=== PATIENT | female | born 1965 | race African-American/Black ===

== ENCOUNTER 2024-01-06 09:31 | Emergency (ER) | payer MEDICARE, SELFPAY ==
[2024-01-06 09:35] VITALS: BP 153/67; PULSE 92; RESP 16; TEMP 36.2; O2SAT 97
--- NOTE | 2024-01-06 11:24 | ED.EAR ---
HPI - Ear Problem General Chief complaint: Ear Stated complaint: ear pain Time Seen by Provider: 01/06/24 10:40 History of Present Illness HPI Narrative: Patient is a 58-year-old female who presents ER with ear pain. Right-sided. Associated muffled hearing. No dental pain. Denies fevers or chills or sweats. Ongoing over last 2 days. Related Data Allergies Allergy/AdvReac Type Severity Reaction Status Date / Time No Known Allergies Allergy Verified 01/06/24 09:35 Review of Systems Constitutional: Constitutional: Denies chills and Denies fever(s) ENT: Denies nasal congestion and Denies sore throat Comments: Right ear pain Respiratory: Respiratory: Denies cough, Denies dyspnea and Denies wheezing PMFSH Past Medical History Medical History (Updated 01/06/24 @ 19:31 by Jacky Bacon MD) Hyperlipidemia Hypertension Exam Narrative: GENERAL: Well-appearing, well-nourished, and in no acute distress. HEAD: Normocephalic, atraumatic. ENT: Mucous membranes moist. otitis media right ear with bulging eardrum with yellow material behind it. Ear canal erythematous. NECK: Supple. EXTREMITIES: Normal range of motion. No edema. SKIN: Warm, dry, no rash. NEURO: Alert and oriented x3. PSYCH: Normal mood and affect. Course Course Emergency Course: Discussed diagnosis and treatment plan. Discharge. Vital Signs Vital signs: Vital Signs Temperature 97.1 F L 01/06/24 09:35 Pulse Rate 92 01/06/24 09:35 Respiratory Rate 16 01/06/24 09:35 Blood Pressure 153/67 H 01/06/24 09:35 Pulse Oximetry 97 01/06/24 09:35 Temperature 98.0 F 01/06/24 11:45 Pulse Rate 80 01/06/24 11:45 Respiratory Rate 16 01/06/24 11:45 Blood Pressure 138/90 01/06/24 11:45 Pulse Oximetry 98 01/06/24 11:45 Medical Decision Making Vital Signs Vital Signs: Vital Signs Temperature 97.1 F L 01/06/24 09:35 Pulse Rate 92 01/06/24 09:35 Respiratory Rate 16 01/06/24 09:35 Blood Pressure 153/67 H 01/06/24 09:35 Pulse Oximetry 97 01/06/24 09:35 Temperature 98.0 F 01/06/24 11:45 Pulse Rate 80 01/06/24 11:45 Respiratory Rate 16 01/06/24 11:45 Blood Pressure 138/90 01/06/24 11:45 Pulse Oximetry 98 01/06/24 11:45 Discharge Plan Discharge Clinical Impression: Otitis media Patient Disposition: Home, Self-Care Condition: Stable Instructions: Ear Infection (ED) Additional Instructions: You have an infection of your right ear, you are being started on Augmentin to help treat this infection. Return to the ER if you have increased pain, you fall and injure yourself, or you have additional concerns. Prescriptions: New amoxicillin-pot clavulanate 875-125 mg tablet 1 tablet PO Q12H Qty: 20 0RF Follow-up/Referrals: Connor,Carole Adler MD [Primary Care Provider] - 1 Week
[2024-01-06 11:45] VITALS: BP 138/90; PULSE 80; RESP 16; TEMP 36.7; O2SAT 98
== END 2024-01-06 11:47 | disposition home or self-care (01) ==
PROVIDERS: Emergency Provider Emergency Medicine; PCP Internal Medicine
DX: H66.91 Otitis media, unspecified, right ear (principal); E78.5 Hyperlipidemia, unspecified; I10 Essential (primary) hypertension
CPT/HCPCS: 99283

== ENCOUNTER 2024-08-14 19:40 | Emergency (ER) | payer MEDICARE, SELFPAY ==
--- NOTE | ~2024-08-14 | XR_ITS ---
XR chest 1V portable Ordering provider: Sima De Leon MD History: 58 years Female with . cp . Comparison: None. FINDINGS: MEDIASTINUM: The cardiac silhouette is slightly enlarged. LUNGS: No infiltrates, effusions or pneumothorax. OTHER: No free air under the diaphragm. Degenerative changes of the spine. IMPRESSION: No acute cardiopulmonary pathology. Reviewed, dictated and finalized at location A.
[2024-08-14 19:49] VITALS: BP 180/87; PULSE 78; RESP 14; TEMP 36.8; O2SAT 98
--- NOTE | 2024-08-14 19:52 | ECG_ITS ---
Test Date: 2024-08-14 19:49:03 Measurements Intervals [place] Rate: 76 P: 44 DC: 149 QRS: -12 QRSD: 95 T: 29 QT: 311 QTc: 351 Interpretive Statements SINUS RHYTHM WITH ATRIAL PREMATURE COMPLEX NONSPECIFIC T-WAVE ABNORMALITY- INFERIOR LEADS BASELINE ARTIFACT- I, III, AVR, AVL, AVF, V1-V6 BORDERLINE ECG No previous ECG available for comparison Electronically Signed On 08-15-2024 07:58:32 CDT by Aaron Alegria D.O.
--- NOTE | 2024-08-14 19:53 | ED.CHESTPAIN ---
HPI - Chest Pain General Chief Complaint: Chest Pain Stated Complaint: chest pain/headache Time Seen by Provider: 08/14/24 19:49 History of Present Illness HPI narrative: Patient is a 4-year-old female who presents to the emergency department this evening complaining of substernal chest pain which started approximately 10:00 a.m. this morning. Patient states that she felt as though the pain got worse throughout the day so she decided to come to the emergency department for further evaluation. States the pain is burning in sensation and does not radiate. Denies any history of cardiovascular disease, admits to history of hypertension and hyperlipidemia and current tobacco use. Denies any nausea vomiting or abdominal pain denies any recent illness and or fevers or chills. No additional symptoms or concerns at this time. Related Data Allergies Allergy/AdvReac Type Severity Reaction Status Date / Time No Known Allergies Allergy Verified 08/14/24 19:56 Review of Systems Review of Systems: All systems are reviewed and are negative unless stated otherwise in the HPI. [facility] Past Medical History Medical History (Updated 08/14/24 @ 21:56 by Sima De Leon MD) Hyperlipidemia Hypertension Exam Narrative: General: Alert, awake, afebrile, in no acute distress. HEENT: PERRL, no rhinorrhea, no post nasal drip, oropharynx clear. Cardiovascular: Regular rate and rhythm, no murmurs, rubs or gallops, no peripheral edema. Respiratory: Clear to auscultation bilaterally, no tachypnea, no wheezing, no rhonchi, no rubs, no respiratory distress. Abdomen: Soft, nontender, nondistended, no rebound, no guarding, no peritoneal signs. Musculoskeletal: No joint swelling or deformity, normal muscle tone. Skin: No rashes or petechia, no signs of infection. Neurological: Alert and oriented to person, place, and time. Follows all commands. No focal deficits, speech is clear and fluent. Course Vital Signs Vital signs: Vital Signs Temperature 98.2 F 08/14/24 19:49 Pulse Rate 78 08/14/24 19:49 Respiratory Rate 14 08/14/24 19:49 Blood Pressure 180/87 H 08/14/24 19:49 Pulse Oximetry 98 08/14/24 19:49 Oxygen Delivery Room Air 08/14/24 19:49 Temperature 97.9 F 08/14/24 20:51 Pulse Rate 71 08/14/24 20:51 Respiratory Rate 19 08/14/24 20:51 Blood Pressure 138/80 08/14/24 20:51 Pulse Oximetry 98 08/14/24 20:51 Oxygen Delivery Room Air 08/14/24 20:32 MDM - Chest Pain MDM Narrative Medical decision making narrative: The patient was evaluated by myself in the emergency department. History is obtained from patient who is an independent historian and physical exam was performed. External medical records were reviewed at this time. IV was established and pertinent tests were ordered. Patient was administered 4 mg of oral Protonix at this time. EKG was obtained which revealed sinus rhythm rate of 76 beats per minute, no evidence of acute ischemia. EKG was independently interpreted by me and is currently pending official cardiology read. Laboratory results obtained revealing a potassium of 3.1, otherwise unremarkable. At this time patient was administered 40 mEq of oral potassium. Magnesium level noted to be normal. Troponin normal. Imaging studies obtained included CXR which was independently interpreted by me revealing no acute cardiopulmonary process, which is pending final radiology interpretation. Differential diagnosis considerations include her acid reflux/GERD, coronary artery disease, infectious process such as pneumonia. Comorbidities impacting this visit include history of hypertension and hyperlipidemia current tobacco use. Patient has a low heart score of 3. I have evaluated and discussed social determinants of health with the patient that could potentially impact subsequent diagnosis and treatment plans. On repeat assessment of the patient, reevaluation revealed that the patient
[2024-08-14 20:00] LABS: Basophils Absolute Auto 0.1 K/mm3 (0.0-0.1); Basophils Percent Auto 0.6 % (0.2-1.2); Eosinophils Absolute Auto 0.2 K/mm3 (0-0.3); Eosinophils Percent Auto 2.1 % (0-4.4); Hematocrit 38.1 % (37.0-47.0); Hemoglobin 12.6 g/dL (12.0-15.0); Immature Granulocyte Absolute 0.03 K/mm3 (0.00-0.031); Immature Granulocyte Percent A 0.3 % (0-0.5); Lymphocytes Absolute Auto 3.79 K/mm3 (0.9-3.2); Lymphocytes Percent Auto 35.2 % (18.3-44.2); Mean Corpuscular HGB Conc 33.1 g/dl (32-36); Mean Corpuscular Hemoglobin 28.1 pg (26-34); Mean Platelet Volume 8.3 fl (7.4-10.4); Monocytes Absolute Auto 0.9 K/mm3 (0.1-0.6); Monocytes Percent Auto 8.2 % (2.6-8.5); Neutrophils Absolute Auto 5.8 K/mm3 (1.3-6.7); Neutrophils Percent Auto 53.6 % (45.5-73.1); Platelet Count Result 284 k/mm3 (150-375); Red Blood Count 4.48 M/mm3 (4.2-5.4); Red Cell Distribution Width 14.2 % (11.5-14.5); White Blood Count 10.8 K/mm3 (4.5-10.0)
[2024-08-14 20:10] LABS: Prothrombin Time 13.4 Seconds (11.1-14.7)
[2024-08-14 20:11] LABS: Partial Thromboplastin Time 32.2 Seconds (22.3-36.8)
[2024-08-14 20:15] LABS: Alanine Aminotransferase 14 U/L (6-35); Albumin Level 4.7 g/dL (3.5-5.1); Alkaline Phosphatase 88 U/L (38-126); Anion Gap 13 mmol/L (4-12); Aspartate Amino Transferase 20 U/L (14-36); Bilirubin,Total 0.3 mg/dL (0.2-1.3); Blood Urea Nitrogen 12 mg/dL (7-17); Calcium 9.8 mg/dL (8.4-10.2); Carbon Dioxide 22 mmol/L (22-30); Chloride 101 mmol/L (98-107); Estimated CRCL calculation 64 ml/min; Estimated Glomerular Filt Rate > 60; Glucose 144 mg/dL (65-110); Lipase 41 U/L (23-300); Potassium 3.1 mmol/L (3.4-5.0); Sodium 136 mmol/L (137-145)
[2024-08-14 20:27] LABS: Troponin I < 0.012 ng/mL (0.000-0.034)
[2024-08-14 20:32] VITALS: PULSE 68
[2024-08-14 20:51] VITALS: BP 138/80; PULSE 71; RESP 19; TEMP 36.6; O2SAT 98
[2024-08-14] MEDS: PANTOPRAZOLE SODIUM IV 40 MG VIAL IV PUSH (21:02)
[2024-08-14] MEDS: POTASSIUM CHLORIDE 20 MEQ PACKET (FOR LIQUID) 40 MEQ PO (21:27)
[2024-08-14 22:00] VITALS: BP 125/87; PULSE 99; RESP 14; TEMP 37; O2SAT 97
== END 2024-08-14 22:00 | disposition home or self-care (01) ==
PROVIDERS: Emergency Provider Emergency Medicine
DX: R07.89 Other chest pain (principal); K21.9 Gastro-esophageal reflux disease without esophagitis; E87.6 Hypokalemia; E78.5 Hyperlipidemia, unspecified; I10 Essential (primary) hypertension
CPT/HCPCS: 36415; 71045; 80053; 83690; 83735; 84484; 85025; 85610; 85730; 93005; 96374; 99284; A9270; J2470

== ENCOUNTER 2025-03-19 16:19 | Emergency (ER) | payer MEDICARE, MEDICAID, SELFPAY ==
[2025-03-19 16:28] VITALS: BP 147/76; PULSE 86; RESP 20; TEMP 36.6; O2SAT 100
--- NOTE | 2025-03-19 17:15 | ED_ITS ---
HPI - Skin/Abscess/Foreign Bdy General Chief complaint: Skin/Abscess/Foreign Body Stated complaint: spider bite on back Time Seen by Provider: 03/19/25 17:15 Source: patient Mode of arrival: ambulatory Limitations: no limitations History of Present Illness HPI narrative: 59 yo F presents with spider bite to back. Painful and itchy. Afebrile. All systems reviewed and negative except as noted above. Related Data Home Medications ?Medication ?Instructions ?Recorded ?Confirmed ?Last Taken ?Type amlodipine 10 mg tablet mg 03/19/25 Unknown History atorvastatin 20 mg tablet mg 03/19/25 Unknown History citalopram 20 mg tablet mg 03/19/25 Unknown History hydrochlorothiazide 12.5 mg tablet mg 03/19/25 Unknown History lisinopril 20 mg tablet mg 03/19/25 Unknown History nitroglycerin 0.4 mg sublingual mg 03/19/25 Unknown History tablet Allergies Allergy/AdvReac Type Severity Reaction Status Date / Time No Known Allergies Allergy Verified 03/19/25 16:34 Review of Systems Review of Systems: CONSTITUTIONAL: Denies fever, chills, or sweats. EYES: Denies visual changes, redness, or discharge. ENT: Denies rhinorrhea, congestion, sore throat, or otalgia. CARDIOVASCULAR: Denies chest pain, palpitations, or edema. RESPIRATORY: Denies cough or dyspnea. GASTROINTESTINAL: Denies abdominal pain, nausea, vomiting, or diarrhea. GENITOURINARY: Denies dysuria or hematuria. SKIN: Denies rash or itching. Reports spider bite to back MUSCULOSKELETAL: Denies back pain, joint pain, or myalgia. NEUROLOGIC: Denies headache, numbness, or weakness. PSYCHIATRIC: Denies anxiety or depression. All other systems reviewed are negative, except as documented in HPI. [facility] Past Medical History Medical History (Updated 03/19/25 @ 17:20 by Cathleen Zapata NP) Hyperlipidemia Hypertension Comments At time of signature, agree with nursing past medical, surgical, social and family history. There is no relevant family history pertinent to the presenting complaint. Exam Narrative: GENERAL: This is a well-nourished, well-developed patient, in no apparent distress. HEAD: normocephalic, atraumatic. EYES: PERRL. Sclera clear/white. Vision is grossly intact. EARS: External ears normal NOSE: External nose normal NECK: Neck supple, non-tender without lymphadenopathy, masses or thyromegaly. CARDIOVASCULAR: Regular rate and rhythm without murmurs, gallops, or rubs. RESPIRATORY: Clear to auscultation. Breath sounds equal bilaterally. No wheezes, rales, or rhonchi. SKIN: warm, Dry, intact with no suspicious lesions or rash, good texture and turgor. erythematous raised papule to center of back approximate 3 x 1 cm without fluctuance. Dried blood noted. NEURO: awake, alert, and oriented to person, place and time. There were no obvious focal neurologic abnormalities. EXTREMITIES: No joint tenderness, effusion, or edema noted. Course Course Level of Care: Express Care Visit Vital Signs Vital signs: Vital Signs Temperature 36.6 C 03/19/25 16:28 Pulse Rate 86 03/19/25 16:28 Respiratory Rate 20 03/19/25 16:28 Blood Pressure 147/76 H 03/19/25 16:28 Pulse Oximetry 100 03/19/25 16:28 Oxygen Delivery Room Air 03/19/25 16:28 Temperature 36.6 C 03/19/25 16:28 Pulse Rate 86 03/19/25 16:28 Respiratory Rate 20 03/19/25 16:28 Blood Pressure 147/76 H 03/19/25 16:28 Pulse Oximetry 100 03/19/25 16:28 Oxygen Delivery Room Air 03/19/25 16:28 Reviewed MDM - Skin/Abscess/Foreign Bdy MDM Narrative Medical decision making narrative: will treat with doxycycline, steroid cream for possible insect bite. Please be advised this is a medical document. It is intended for [id number] communication. It is written in medical language and may contain unfamiliar abbreviations or verbiage. Medical documents are intended to carry relevant information, facts as evident, and the clinical opinion of the practitioner at the time of the encounter. This report may have been done utilizing a voice recognition system. Attempts have been made to correct errors. However, there may be uncorrected grammatical, spelling, and recognition errors present. The file time of this note does not necessarily represent the time of service. Discharge Plan Discharge Clinical Impression: Insect bite (nonvenomous) of left back wall of thorax, initial encounter Patient Disposition: Home Condition: Stable Instructions: Antibiotic Form, Insect Bite or Sting (ED) Additional Instructions: Take antibiotic as prescribed until gone. Apply steroid cream 2 to 3 times a day sparingly to affected area for itching, inflammation. Take Tylenol every 6-8 hours as needed for pain. Follow-up with your doctor if not improving. Patient Language: Albanian Prescriptions: New doxycycline hyclate 100 mg capsule 100 mg PO BID 7 Days Qty: 14 0RF triamcinolone acetonide 0.1 % cream 1 applic topical BID PRN (Reason: insect bite) Qty: 30 0RF No Action atorvastatin 20 mg tablet lisinopril 20 mg tablet citalopram 20 mg tablet amlodipine 10 mg tablet nitroglycerin 0.4 mg tablet, sublingual hydrochlorothiazide 12.5 mg tablet pantoprazole [Protonix] 40 mg tablet,delayed release (DR/EC) 40 mg PO HS Qty: 20 0RF Follow-up/Referrals: PHYSICIAN NOT ON STAFF,NONSTAFF [Primary Care Provider] - Time of Disposition: 17:20
== END 2025-03-19 17:30 | disposition home or self-care (01) ==
PROVIDERS: Emergency Provider Nurse Practitioner Family
DX: S20.462A Insect bite (nonvenomous) of left back wall of thorax, initial encounter (principal); W57.XXXA Bitten or stung by nonvenomous insect and other nonvenomous arthropods, initial encounter; I10 Essential (primary) hypertension; E78.5 Hyperlipidemia, unspecified
CPT/HCPCS: 99213; G0463